=== PATIENT | female | born 1965 | race Caucasian/White ===

== ENCOUNTER → 2020-02-18 | Emergency (ER) | payer MEDICAID, OTHER ==
[~2020-02-18] VITALS: Ht 180.3 cm; Wt 81.6 kg
[2020-02-18 08:43] VITALS: BP 170/86
== END | disposition home or self-care (01) ==
LOC: ER 08:25
DX: J40 Bronchitis, not specified as acute or chronic (principal); F17.210 Nicotine dependence, cigarettes, uncomplicated; Z20.828 Contact with and (suspected) exposure to other viral communicable diseases
CPT/HCPCS: 71045; 87635